=== PATIENT | female | born 1990 | race Caucasian/White ===

== ENCOUNTER 2019-07-25 08:10 | Emergency (ER) | payer BC ==
[2019-07-25 08:40] VITALS: BP 108/70
--- NOTE | 2019-07-25 09:32 | UC ---
Ear Complaint HPI - HPI Summary HPI Summary: The patient is a 29-year-old female who has had nasal congestion and facial pressure and pain as well as bilateral otalgia 4 days. Her left ear is worse on the right. She has a history of frequent otitis media as a child. She had PE tubes as a child. She denies any fever or chills. He typically has allergies this time either. - History of Current Complaint Chief Complaint: UCEar Stated Complaint: LEFT EAR COMPLAINT Time Seen by Provider: 07/25/19 09:19 Hx Obtained From: Patient Hx Last Menstrual Period: 07/07/19 Onset/Duration: Gradual Onset, Lasting Days Severity Initially: Mild Severity Currently: Mild Pain Intensity: 2 Pain Scale Used: 0-10 Numeric Associated Signs/Symptoms: Positive: URI Symptoms Related History: Seasonal Allergies, Prior ENT Surgery - Allergies/Home Medications Allergies/Adverse Reactions: Allergies Allergy/AdvReac Type Severity Reaction Status Date / Time Sulfa (Sulfonamide Allergy Unknown Hives Verified 07/25/19 08:33 Antibiotics) PMH/Surg Hx/FS Hx/Imm Hx Previously Healthy: Yes - Surgical History Surgical History: Yes Surgery Procedure, Year, and Place: RIGHT KNEE ACL RECONSTRUCTION - Family History Known Family History: Positive: Other - CA: breast/bladder/lymphoma Negative: Cardiac Disease, Hypertension, Diabetes - Social History Alcohol Use: Occasionally Substance Use Type: None Smoking Status (MU): Never Smoked Tobacco Review of Systems All Other Systems Reviewed And Are Negative: Yes Constitutional: Positive: Fatigue Skin: Positive: Negative Eyes: Positive: Negative ENT: Positive: Ear Ache, Nasal Discharge, Sinus Congestion Respiratory: Positive: Negative Cardiovascular: Positive: Negative Gastrointestinal: Positive: Negative Genitourinary: Positive: Negative Motor: Positive: Negative Neurovascular: Positive: Negative Musculoskeletal: Positive: Negative Neurological: Positive: Negative Psychological: Positive: Negative Physical Exam Triage Information Reviewed: Yes Appearance: Well-Appearing, No Pain Distress, Well-Nourished Vital Signs: Initial Vital Signs Temp 97.8 F 07/25/19 08:34 Pulse 61 07/25/19 08:34 Resp 14 07/25/19 08:34 BP 108/70 07/25/19 08:34 Pulse Ox 100 07/25/19 08:34 Vital Signs Reviewed: Yes Eyes: Positive: Conjunctiva Clear ENT: Positive: Hearing grossly normal, Nasal congestion, TM bulging - bilat, TM red - left, Sinus tenderness - mild, Uvula midline. Negative: Nasal drainage Dental Exam: Normal Neck: Positive: Supple, Nontender, No Lymphadenopathy Respiratory: Positive: Lungs clear, Normal breath sounds, No respiratory distress, No accessory muscle use Cardiovascular: Positive: RRR, No Murmur Musculoskeletal: Positive: ROM Intact, No Edema Neurological: Positive: Alert Psychological Exam: Normal Skin Exam: Normal Ear Complaint Course/Dx - Differential Dx/Diagnosis Provider Diagnosis: Left otitis media, Right serous otitis media, Allergic rhinitis Discharge ED - Sign-Out/Discharge Documenting (check all that apply): Patient Departure All imaging exams completed and their final reports reviewed: No Studies - Discharge Plan Condition: Stable Disposition: HOME Prescriptions: Amoxicillin PO (*) [Amoxicillin 875 MG (*)] 875 mg PO BID #20 tab Fluticasone NASAL SPRAY 50MCG* [Flonase NASAL SPRAY 50MCG*] 2 spray BOTH NARES BID #1 btl Patient Education Materials: Ear Infection (ED), Allergic Rhinitis (ED) Referrals: [facility] [place] [facility] [Outside] - If Needed Additional Instructions: recheck for new or worsening symptoms - Billing Disposition and Condition Condition: STABLE Disposition: Home
== END 2019-07-25 09:45 | disposition home or self-care (01) ==
LOC: UCCORT 08:10
DX: H65.91 Unspecified nonsuppurative otitis media, right ear (principal); H66.92 Otitis media, unspecified, left ear; J30.9 Allergic rhinitis, unspecified; Z88.2 Allergy status to sulfonamides
CPT/HCPCS: 99212; G0463